=== PATIENT | female | born 1985 | race Caucasian/White ===

== ENCOUNTER 2017-06-15 12:24 | Emergency (ER) | payer OTHER ==
[~2017-06-15] VITALS: Ht 170.2 cm; Wt 68.0 kg
[2017-06-15] MEDS ORDERED: NS IV 1000 ML 1,000 ML IV ONE ×2 (12:54→13:38)
[2017-06-15] MEDS ORDERED: [UNRECOGNIZED DRUG - CODE] PO (12:56)
[2017-06-15] MEDS ORDERED: PHEN-483 PO (12:56)
[2017-06-15] MEDS ORDERED: ONDA4TAB8 PO (12:56)
[2017-06-15] MEDS ORDERED: ONDANSETRON 4 MG/2 ML (SDV) Z0FRAN IVP ONE ×2 (13:00→14:15)
--- NOTE | 2017-06-15 13:02 | ED GI ---
General Chief Complaint: Abdominal/GI Problems Stated Complaint: N/V/FEVER Nursing Triage Note: PT CO OF POSS FEVER N/V, PT STATES STARTED HAVING N/V LAST PM, WAS SEEN AT [facility] AND WAS GIVEN TAKE HOME OF ZOFRAN, IV FLUIDS AND PHENERGAN. NOT ANY BETTER TODAY. Sepsis Screen: No Definite Risk Source of Information: Patient Exam Limitations: No Limitations History of Present Illness Time Seen By Provider: 12:43 Initial Comments 31 yo female patient presents to the ED with c/o N/V beginning yesterday evening. States she was seen at [facility]'s ER last night and given phenergan, fluids, and a take home of zofran. Was told her lipase was slightly elevated yesterday in the emergency department. Patient denies improvement in symptoms today. Patient c/o chills, but denies fever. Timing/Duration: 12-24 Hours Severity/Quality: Burning Location: Epigastric Activities at Onset: None Modifying Factors: Worsens With Eating Allergies and Home Medications Allergies Coded Allergies: Sulfa (Sulfonamide Antibiotics) (Verified Allergy, Unknown, 06/15/17) Home Medications Hyoscyamine Sulfate 0.125 Mg Tab.subl, 0.125 MG SL Q6H PRN for SPASMS, #20 Ref 0 Prescribed by: MOJGAN HUNTLEY on 06/15/17 1646 Indomethacin, Submicronized 40 Mg Capsule, 40 MG PO DAILY, (Reported) Omeprazole 40 Mg Capsule.dr, 40 MG PO DAILY, #60 Ref 0 Prescribed by: MOJGAN HUNTLEY on 06/15/17 1623 Ondansetron 4 Mg Tab.rapdis, 4 MG PO, (Reported) Phentermine HCl 37.5 Mg Capsule, 37.5 MG PO, (Reported) Prochlorperazine Maleate 5 Mg Tablet, 5 MG PO Q6H PRN for NAUSEA/VOMITING-2ND LINE, #10 Ref 0 Prescribed by: MOJGAN HUNTLEY on 06/15/17 1646 Review of Systems Constitutional: chills, No dizziness, No fever, malaise EENTM: No Symptoms Reported Respiratory: Denies Cough, Denies Shortness of Air Cardiovascular: No Symptoms Reported Gastrointestinal: Denies Abdomen Distended, Abdominal Pain, Denies Blood Streaked Stools, Denies Constipated, Denies Diarrhea, Denies Difficulty Swallowing, Nausea, Poor Appetite, Poor Fluid Intake, Denies Rectal Bleeding, Vomiting Genitourinary: Denies Burning, Denies Frequency, Denies Flank Pain, Denies Hematuria Musculoskeletal: no symptoms reported Skin: no symptoms reported Psychiatric/Neurological: No Symptoms Reported All Other Systems Reviewed Negative Unless Noted: Yes (Negative excepted noted.) Past Xbjuybf-Avqdwr-Lbjhdn Hx Patient Social History Alcohol Use: Rarely Uses Recreational Drug Use: Yes (pot) Smoking Status: Never a Smoker Recent Foreign Travel: No Contact w/Someone Who Travel: No Recent Infectious Disease Expo: No Recent Hopitalizations: No Physical Abuse: No Sexual Abuse: No Seasonal Allergies Seasonal Allergies: No Surgeries History of Surgeries: No Respiratory History of Respiratory Disorde: No Cardiovascular History of Cardiac Disorders: No Neurological History of Neurological Disord: No Genitourinary History of Genitourinary Disor: No Gastrointestinal History of Gastrointestinal Di: No Musculoskeletal History of Musculoskeletal Dis: Yes (bone spur L FOOT 3RD METATARSAL) HEENT History of HEENT Disorders: No Cancer History of Cancer: No Psychosocial History of Psychiatric Problem: No Suicide Risk Score: 0 Integumentary History of Skin or Integumenta: No Blood Transfusions History of Blood Disorders: No Reviewed Nursing Assessment Reviewed/Agree w Nursing PMH: Yes Family Medical History Significant Family History: No Pertinent Family Hx Physical Exam Vital Signs VS - Last 72 Hours, by Label 06/15/17 06/15/17 12:40 17:43 Temp 98.9 98.9 Pulse 63 63 Resp 18 18 B/P (MAP) 123/69 Pulse Ox 99 99 Capillary Refill : Less Than 3 Seconds General Appearance: WD/WN, no apparent distress HEENT: PERRL/EOMI, pharynx normal Neck: supple, normal inspection Respiratory: lungs clear, normal breath sounds, no respiratory distress, no accessory muscle use Cardiovascular: normal peripheral pulses, regular rate, rhythm, no edema, no murmur Gastrointestinal: normal bowel sounds, non tender, soft, no organomegaly, No distended Extremities: no pedal edema, normal capillary refill Back: normal inspection, no CVA tenderness Neurologic/Psychiatric: alert, normal mood/affect, oriented x 3 Skin: normal color, warm/dry Progress/Results/Core Measures Results/Orders Lab Results Laboratory Tests Test 06/15/17 13:13 Range/Units White Blood Count 9.9 4.3-11.0 10^3/uL Red Blood Count 4.15 L 4.35-5.85 10^6/uL Hemoglobin 13.1 11.5-16.0 G/DL Hematocrit 36 35-52 % Mean Corpuscular Volume 88 80-99 FL Mean Corpuscular Hemoglobin 32 25-34 PG Mean Corpuscular Hemoglobin Concent 36 32-36 G/DL Red Cell Distribution Width 11.2 10.0-14.5 % Platelet Count 91 L 130-400 10^3/uL Mean Platelet Volume 12.2 H 7.4-10.4 FL Neutrophils (%) (Auto) 85 H 42-75 % Lymphocytes (%) (Auto) 8 L 12-44 % Monocytes (%) (Auto) 7 0-12 % Eosinophils (%) (Auto) 0 0-10 % Basophils (%) (Auto) 0 0-10 % Neutrophils # (Auto) 8.4 H 1.8-7.8 X 10^3 Lymphocytes # (Auto) 0.8 L 1.0-4.0 X 10^3 Monocytes # (Auto) 0.7 0.0-1.0 X 10^3 Eosinophils # (Auto) 0.0 0.0-0.3 10^3/uL Basophils # (Auto) 0.0 0.0-0.1 10^3/uL Urine Color YELLOW Urine Clarity CLEAR Urine pH 8 5-9 Urine Specific [place] 1.015 L 1.016-1.022 Urine Protein 2+ H NEGATIVE Urine Glucose (UA) NEGATIVE NEGATIVE Urine Ketones 4+ H NEGATIVE Urine Nitrite NEGATIVE NEGATIVE Urine Bilirubin NEGATIVE NEGATIVE Urine Urobilinogen NORMAL NORMAL MG/DL Urine Leukocyte Esterase NEGATIVE NEGATIVE Urine RBC (Auto) NEGATIVE NEGATIVE Urine RBC NONE /HPF Urine WBC 2-5 /HPF Urine Crystals NONE /LPF Urine Bacteria MODERATE H /HPF Urine Casts NONE /LPF Urine Mucus SMALL H /LPF Urine Culture Indicated NO Urine Test NEGATIVE NEGATIVE Sodium Level 138 135-145 MMOL/L Potassium Level 4.2 3.6-5.0 MMOL/L Chloride Level 105 98-107 MMOL/L Carbon Dioxide Level 20 L 21-32 MMOL/L Anion Gap 13 5-14 MMOL/L Blood Urea Nitrogen 12 7-18 MG/DL Creatinine 0.78 0.60-1.30 MG/DL Estimat Glomerular Filtration Rate > 60 BUN/Creatinine Ratio 15 Glucose Level 94 70-105 MG/DL Calcium Level 9.5 8.5-10.1 MG/DL Total Bilirubin 1.2 H 0.1-1.0 MG/DL Aspartate Amino Transf (AST/SGOT) 70 H 5-34 U/L Alanine Aminotransferase (ALT/SGPT) 76 H 0-55 U/L Alkaline Phosphatase 40 40-136 U/L Total Protein 8.1 6.4-8.2 GM/DL Albumin 4.8 H 3.2-4.5 GM/DL Lipase 19 8-78 U/L My Reji Mendoza - MOJGAN HUNTLEY Cbc With Automated Diff (06/15/17 12:54) Comprehensive Metabolic Panel (06/15/17 12:54) Lipase (06/15/17 12:54) Ua Culture If Indicated (06/15/17 12:54) Saline Lock/Iv-Start (06/15/17 12:54) Ondansetron Injection (Zofran Injectio (06/15/17 13:00) Ns Iv 1000 Ml (Sodium Chloride 0.9%) (06/15/17 12:54) Ns Iv 1000 Ml (Sodium Chloride 0.9%) (06/15/17 13:38) Hcg,Qualitative Urine (06/15/17 13:38) Ondansetron Injection (Zofran Injectio (06/15/17 14:15) Famotidine Injection (Pepcid Injection) (06/15/17 14:01) Hyoscyamine Sl Tablet (Levsin Sl Tablet) (06/15/17 14:15) Famotidine Injection (Pepcid Injection) (06/15/17 13:54) Ondansetron Injection (Zofran Injectio (06/15/17 14:45) Prochlorperazine Injection (Compazine In (06/15/17 15:15) Ct Abdomen/Pelvis W (06/15/17 15:08) Prochlorperazine Injection (Compazine In (06/15/17 15:00) Iohexol Injection (Omnipaque 350 Mg/Ml 1 (06/15/17 15:15) Ns (Ivpb) (Sodium Chloride 0.9% Ivpb Bag (06/15/17 15:15) Pharmacy Communication (Pharmacy Communi (06/15/17 15:10) Rx-Hyoscyamine Tab (Rx-Levsin Sl) (06/15/17 16:42) Medications Given in ED Current Medications Medications Dose Ordered Sig/Roc Route Start Time Stop Time Status Last Admin Dose Admin Iohexol 100 ml ONCE ONCE IV 06/15/17 15:15 06/15/17 15:16 DC 06/15/17 15:35 100 ML Ondansetron HCl 4 mg ONCE ONCE IVP 06/15/17 13:00 06/15/17 13:01 DC 06/15/17 13:01 4 MG Ondansetron HCl 4 mg ONCE ONCE IVP 06/15/17 14:15 06/15/17 14:16 DC 06/15/17 14:06 4 MG Ondansetron HCl 4 mg ONCE ONCE IVP 06/15/17 14:45 06/15/17 14:46 LA 06/15/17 14:35 4 MG Prochlorperazine Edisylate 5 mg ONCE ONCE IV 06/15/17 15:15 06/15/17 15:16 DC 06/15/17 15:10 5 MG Sodium Chloride 100 ml ONCE ONCE IV 06/15/17 15:15 06/15/17 15:16 DC 06/15/17 15:35 80 ML Sodium Chloride 1,000 ml @ 0 mls/hr Q0M ONCE IV 06/15/17 12:54 06/15/17 12:57 DC 06/15/17 13:01 1,000 MLS/HR Sodium Chloride 1,000 ml @ 0 mls/hr Q0M ONCE IV 06/15/17 13:38 06/15/17 13:39 DC 06/15/17 13:56 1,000 MLS/HR Vital Signs/I&O Vital Sign - Last 12Hours 06/15/17 06/15/17 12:40 17:43 Temp 98.9 98.9 Pulse 63 63 Resp 18 18 B/P (MAP) 123/69 Pulse Ox 99 99 Intake and Output 06/16/17 00:00 Intake Total 2000 ml Balance 2000 ml Blood Pressure Mean: 87 Diagnostic Imaging Diagonstic Imaging: CT Plain Films/CT/US/NM/MRI: abdomen, pelvis Comments FINDINGS: Fatty infiltration noted throughout the liver which is otherwise unremarkable. The spleen is normal. Adrenal glands are normal. The pancreas is unremarkable. No acute process seen in either kidney. There is no free air within the upper abdomen. No free fluid appreciated. Due to lack of enteric contrast and the little intraperitoneal fat, the bowel loops are poorly characterized. There does appear to be free fluid within the pelvis. Cystic changes in both ovaries are also noted. Portions of the appendix are seen and appear normal; however, the entire appendix is difficult to follow and cannot be from adjacent bowel loops and fluid in the right lower pelvis. No adjacent drainable fluid or free air is appreciated. No acute osseous abnormality is seen. The visualized lung bases are unremarkable. IMPRESSION: 1. Free fluid in the pelvis which could be physiologic or due to a recently ruptured cyst, given tiny cystic changes in both ovaries. Correlate with symptoms and if necessary pelvic sonography could further characterize. 2. Only portions of the appendix are seen, please see above description. Visualized aspects are unremarkable but the entire appendix is difficult to separate from the fluid in the pelvis. If there is continued concern for a process such as appendicitis, correlation with white count or fever and possibly a followup CT with rectal contrast could further characterize. 3. Other incidental findings discussed above. Dictated on workstation # [id number] Reviewed: Reviewed by Me (radiology report reviewed by me) Departure Communication (Admissions) Progress Notes Patient seen and evaluated. Labs drawn and patient given 1 L normal saline, 4 mg of Zofran with minimal improvement in symptoms. Patient did require be given 2 more doses of 4 mg Zofran, 20 mg of Pepcid, and Levsin sublingual, and Compazine 5 mg 1 dose. Patient did show improvement in symptoms. Due to the continued abdominal cramping and pain; however, CT abdomen and pelvis was obtained which is negative for acute findings. A small amount of free pelvic fluid thought to be related to ovarian cyst. Patient denied lower abdominal pain and was nontender on exam. Plan for discharge to home. Patient is able to drink without difficulty at this time. Patient instructed to return immediately to the emergency department for worsened symptoms or any other concerns. Patient verbalizes understanding and agrees with the treatment plan. Impression Impression: Primary Impression: Nausea and vomiting Qualified Codes: R11.14 - Bilious vomiting Additional Impression: Volume depletion Disposition: 01 HOME, SELF-CARE Condition: Improved Departure-Patient Inst. Decision time for Depature: 16:21 Referrals: NO,LOCAL PHYSICIAN (PCP/Family) Primary Care Physician Patient Instructions: Dehydration, Adult (DC), Nausea and Vomiting, Adult (DC) Add. Discharge Instructions: All discharge instructions reviewed with patient and/or family. Voiced understanding. Medications as instructed. Continue usual home medications with the exception of increasing Zofran to 8 mg by mouth every 6 hours as needed for nausea and vomiting. Use Zofran for first-line symptoms. Drink plenty of fluids. Clear liquid diet until until symptoms improve, then increase diet slowly to a bland, low-fat diet. Avoid spicy and fatty foods. Follow-up with your family practitioner for recheck as an outpatient. Return to the emergency department for worsened symptoms or any other concerns. Scripts Hyoscyamine Sulfate (Levsin-Sl) 0.125 Mg Tab.subl 0.125 MG SL Q6H Y for SPASMS, #20 TAB 0 Refills Prov: MOJGAN HUNTLEY 06/15/17 Prochlorperazine Maleate (Compazine) 5 Mg Tablet 5 MG PO Q6H Y for NAUSEA/VOMITING-2ND LINE, #10 TAB 0 Refills Prov: MOJGAN HUNTLEY 06/15/17 Omeprazole (Omeprazole) 40 Mg Capsule. 40 MG PO DAILY, #60 CAP 0 Refills Prov: MOJGAN HUNTLEY 06/15/17 MOJGAN HUNTLEY Jun 15, 2017 13:02
[2017-06-15 13:23] LABS: BASOPHILS % (AUTO) 0 % (0-10); BILIRUBIN,URINE NEGATIVE (NEGATIVE); EOSINOPHILS % (AUTO) 0 % (0-10); KETONES,URINE 4+ (NEGATIVE); LEUKOCYTE ESTERASE ,URINE NEGATIVE (NEGATIVE); LYMPHOCYTES # (AUTO) 0.8 X 10^3 (1.0-4.0); LYMPHOCYTES % (AUTO) 8 % (12-44); MEAN CORPUSCULAR HEMOGLOBIN 32 PG (25-34); MEAN CORPUSCULAR HGB CONC 36 G/DL (32-36); MEAN CORPUSCULAR VOLUME 88 FL (80-99); MEAN PLATELET VOLUME 12.2 FL (7.4-10.4); MONOCYTES # (AUTO) 0.7 X 10^3 (0.0-1.0); MONOCYTES % (AUTO) 7 % (0-12); NEUTROPHILS # (AUTO) 8.4 X 10^3 (1.8-7.8); NEUTROPHILS % (AUTO) 85 % (42-75); NITRITE,URINE NEGATIVE (NEGATIVE); PH,URINE 8 (5-9); PLATELET COUNT 91 10^3/uL (130-400); PROTEIN,URINE 2+ (NEGATIVE); RED BLOOD COUNT 4.15 10^6/uL (4.35-5.85); RED CELL DISTRIBUTION WIDTH 11.2 % (10.0-14.5); UROBILINOGEN,URINE NORMAL (NORMAL); WHITE BLOOD COUNT 9.9 10^3/uL (4.3-11.0)
[2017-06-15 13:43] LABS: ALANINE AMINOTRANSFERASE 76 U/L (0-55); ALBUMIN 4.8 GM/DL (3.2-4.5); ANION GAP 13 MMOL/L (5-14); ASPARTATE AMINO TRANSFERASE 70 U/L (5-34); BILIRUBIN,TOTAL 1.2 MG/DL (0.1-1.0); BLOOD UREA NITROGEN 12 MG/DL (7-18); BUN/CREATININE RATIO 15; CALCIUM 9.5 MG/DL (8.5-10.1); CARBON DIOXIDE 20 MMOL/L (21-32); CHLORIDE 105 MMOL/L (98-107); CREATININE SERUM 0.78 MG/DL (0.60-1.30); GFR ESTIMATED > 60; GLUCOSE 94 MG/DL (70-105); LIPASE 19 U/L (8-78); SODIUM 138 MMOL/L (135-145); TOTAL PROTEIN 8.1 GM/DL (6.4-8.2)
[2017-06-15 13:45] LABS: POTASSIUM 4.2 MMOL/L (3.6-5.0)
[2017-06-15] MEDS ORDERED: FAMOTIDINE 20MG/2ML IV (PEPCID) ONE (13:54)
[2017-06-15] MEDS ORDERED: FAMOTIDINE 20MG/2ML IV (PEPCID) IV STA (14:01)
[2017-06-15] MEDS ORDERED: HYOSCYAMINE 0.125 MG (LEVSIN) TAB PO ONE (14:15)
[2017-06-15] MEDS: ONDANSETRON 4 MG/2 ML (SDV) Z0FRAN IVP ONE ×2 (14:35→14:45)
[2017-06-15] MEDS ORDERED: PROCHLORPERAZINE 10 MG/2ML INJ (COMPAZINE) ONE (15:00)
[2017-06-15] MEDS ORDERED: PROCHLORPERAZINE 10 MG/2ML INJ (COMPAZINE) IV ONE (15:15)
[2017-06-15] MEDS ORDERED: NS 100 ML (IVPB) BAG IV ONE (15:15)
[2017-06-15] MEDS ORDERED: IOHEXOL 350 MG/ML 100 ML (OMNIPAQUE 350) VIAL IV ONE (15:15)
--- NOTE | 2017-06-15 16:05 | Diagnostic Imaging Report ---
INDICATION: Vomiting since 11:00 p.m. last night. EXAMINATION: CT abdomen and pelvis with contrast, 06/15/2017. COMPARISON: No priors available for comparison. FINDINGS: Fatty infiltration noted throughout the liver which is otherwise unremarkable. The spleen is normal. Adrenal glands are normal. The pancreas is unremarkable. No acute process seen in either kidney. There is no free air within the upper abdomen. No free fluid appreciated. Due to lack of enteric contrast and the little intraperitoneal fat, the bowel loops are poorly characterized. There does appear to be free fluid within the pelvis. Cystic changes in both ovaries are also noted. Portions of the appendix are seen and appear normal; however, the entire appendix is difficult to follow and cannot be from adjacent bowel loops and fluid in the right lower pelvis. No adjacent drainable fluid or free air is appreciated. No acute osseous abnormality is seen. The visualized lung bases are unremarkable. IMPRESSION: 1. Free fluid in the pelvis which could be physiologic or due to a recently ruptured cyst, given tiny cystic changes in both ovaries. Correlate with symptoms and if necessary pelvic sonography could further characterize. 2. Only portions of the appendix are seen, please see above description. Visualized aspects are unremarkable but the entire appendix is difficult to separate from the fluid in the pelvis. If there is continued concern for a process such as appendicitis, correlation with white count or fever and possibly a followup CT with rectal contrast could further characterize. 3. Other incidental findings discussed above. Dictated by: Dictated on workstation # [id number]
[2017-06-15] MEDS ORDERED: OMEP40CA36 PO (16:23)
[2017-06-15] MEDS ORDERED: PROC5TAB52 PO ×2 (16:23→16:46)
[2017-06-15] MEDS ORDERED: RX-HYOSCYAMINE 0.125 MG SL (LEVSIN) PPK#6 SL STA (16:42)
[2017-06-15] MEDS ORDERED: HYOS0.1283 SL (16:46)
[2017-06-15 17:43] VITALS: BP 123/69
== END 2017-06-15 17:43 | disposition home or self-care (01) ==
LOC: ER 12:28
DX: R11.2 Nausea with vomiting, unspecified (principal); E86.9 Volume depletion, unspecified
CPT/HCPCS: 36415; 74177; 80053; 81000; 83690; 84703; 85025